=== PATIENT | male | born 1955 | race Caucasian/White ===

== ENCOUNTER → 2016-08-11 | Outpatient (REF) ==
[2016-08-11 14:18] LABS: PSA-TOTAL 3.3 ng/mL (0-4)
[2016-08-11 14:28] LABS: THYROID STIMULATING HORMONE 2.62 uIU/mL (0.465-4.680)
== END ==
LOC: ZLAB.WCH 11:29
PROVIDERS: Internal Medicine
DX: Z01.89 Encounter for other specified special examinations (principal)
CPT/HCPCS: G0103

== ENCOUNTER → 2017-08-30 | Outpatient (REF) ==
[2017-08-30 19:01] LABS: PSA-TOTAL 4.57 ng/mL (0-4)
[2017-08-30 19:29] LABS: THYROID STIMULATING HORMONE 2.17 uIU/mL (0.465-4.680)
== END ==
LOC: ZLAB.WCH 18:09
PROVIDERS: Internal Medicine
DX: Z01.89 Encounter for other specified special examinations (principal)
CPT/HCPCS: G0103

== ENCOUNTER → 2018-03-22 | Outpatient (REF) | LOC: ZLAB.WCH 18:19 | DX: Z01.89 Encounter for other specified special examinations (principal) ==